=== PATIENT | female | born 1975 | race Caucasian/White ===

== ENCOUNTER 2018-04-17 11:17 | Emergency (ER) | payer MEDICAID, SELFPAY ==
[2018-04-17 11:24] VITALS: BP 126/67; PULSE 82; RESP 16; TEMP 37; O2SAT 97
--- NOTE | 2018-04-17 11:32 | ED.GENADUL_ITS ---
Discharge Plan Disposition Patient Disposition: HOME Condition: Good Discharge Details Chief Complaint: RespSymp Clinical Impression: URI (upper respiratory infection) Primary Care Provider: Brendan Greenberg ED Provider: Fabian Hollis Home Meds and New Rx's Prescriptions: New albuterol sulfate 90 mcg/actuation HFA aerosol inhaler 1 puff IH Q6H PRN (Reason: shortness of breath or wheezing) Qty: 6.7 RF: 0 No Action multivitamin Tablet 1 tab PO DAILY RF: 0 Discharge Instructions Instructions: Upper Respiratory Infection (ED) Additional Instructions: Please use the inhaler every 4-6 hours. if you notice any worsening of your symptoms, or any new symptoms such as vomiting, diarrhea, fever, chills, shortness of breath, chest pain, numbness, weakness, or fainting , please return immediately to the emergency department for reevaluation. Please follow up with your primary care provider as soon as possible for reassessment and reevaluation. As always, it was a pleasure participating in your medical care today. Referrals: Brendan Greenberg MD [Primary Care Provider] - Medical Decision Making This is a 42-year-old female with past medical history of tobacco use who presents with a cough for the last week and a half. She has no red flags or symptoms concerning for pulmonary embolism. Cough is nonproductive she is afebrile, vital signs are reassuring. Physical exam demonstrates no wheezes rales rhonchi. No evidence of hypoxemia or respiratory distress. With an unremarkable physical exam, no significant erythema in the posterior oropharynx or signs of severe infection I feel she can be safely discharged home. With her tobacco history I do feel that she is suffering from a viral upper respiratory infection with perhaps minimal associated bronchitis. We will prescribe an inhaler, give Toradol and Decadron here in the ED. I have extensively reviewed the treatment plan and discharge instructions with the patient. I have addressed all patient concerns at this time. The patient was made aware of what symptoms to monitor for that would warrant a return to the emergency department. Discussed the plan with the patient, they demonstrate verbal understanding and agreement with our assessment and plan at this time. HPI General Date/Time Provider Initiated Documentation: 04/17/18 11:18 . HPI Narrative: This is a 42-year-old female with a past medical history of tobacco use and a tubal ligation who presents today for evaluation of cough occasional chills, for the last week to week and a half. She states that she felt slightly warm at home, but she is afebrile here. Her cough is nonproductive. She denies any hemoptysis. denies PE risk factors such as recent long car rides, immobilization, recent surgery, prior history of DVT or PE, family history of PE or DVT, morbid obesity, exogenous estrogen and smoking, hemoptysis, history of cancer. 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 She has not gotten her flu shot. She does admit to regular tobacco use. Patient denies any nausea, vomiting, chest pain, shortness of breath, numbness, tingling, or weakness. She denies any other complaints at this time or any other modifying factors. She denies any recent hospitalizations. She denies any IV or illicit drug use or pertinent family history. Related Data Home Medications Medication Instructions Recorded Confirmed albuterol sulfate 1 puff IH Q6H PRN #6.7 gm 04/17/18 multivitamin 1 tab PO DAILY 04/17/18 04/17/18 Previous Rx's Medication Instructions Recorded albuterol sulfate 1 puff IH Q6H PRN #6.7 gm 04/17/18 Allergies Allergy/AdvReac Type Severity Reaction Status Date / Time Latex, Natural Rubber Allergy Unverified 04/17/18 11:34 morphine Allergy Unverified 04/17/18 11:33 Penicillins Allergy Unverified 04/17/18 11:33 Review of Systems Review of Systems All systems reviewed & are unremarkable except as noted in HPI and below PFSH Social History Smoking/Tobacco Use Status: Current every day Exam Narrative Exam Narrative: 1.Const: Well-nourished, Well-developed, appearing stated age 2.Eyes: PERRL, no conjunctival injection, and symmetrical lids. 3.ENT: Atraumatic external nose and ears. Moist MM. Neck: Symmetric, trachea midline, No thyromegaly. Patient demonstrates good movement of cervical neck. There is no nuchal rigidity, no nuchal tenderness. Patient is able to flex the neck without any difficulty or significant pain. Negative Kernig's and Brudzinski sign. 4.CVS: +S1/S2, No murmurs or gallops. Peripheral pulses 2+ and equal in all extremities. Brisk capillary refill in all extremities. 5.RESP: Unlabored respiratory effort. Clear to auscultation bilaterally. No wheezes rales or rhonchi 6.GI: Soft, Nontender/Nondistended, No hepatosplenomegaly. No guarding or rebound. 7.MSK: Normocephalic/Atraumatic, Extremities w/o deformity or ttp No cyanosis or clubbing, Normal movement of all extremities 8.Skin: Warm, notably dry skin. No rashes or lesions. 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 Sensation grossly intact, no focal neurologic deficits. 10.Psych: (AAO) x3. Appropriate mood and affect
[2018-04-17] MEDS: Dexamethasone 4 MG TAB 12 MG PO (11:39)
[2018-04-17] MEDS: Ketorolac 30 MG/ML VIAL IM (11:40)
--- NOTE | 2018-04-18 09:09 | PDOC.ERCMPRO ---
Care Management Progress Note 04/18-Dr. 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 Does not need ED f/u needs to establish PCP. Referral faxed to [facility] this am.
--- NOTE | 2018-04-18 09:10 | CMPROGNOTE_ITS ---
Care Management Progress Note 04/18-Dr. 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 Does not need ED f/u needs to establish PCP. Referral faxed to [facility] this am.
== END 2018-04-17 11:48 | disposition home or self-care (01) ==
PROVIDERS: Emergency Provider Student in an Organized Health Care Education/Training Program; PCP Family Medicine
DX: J06.9 Acute upper respiratory infection, unspecified (principal); F17.210 Nicotine dependence, cigarettes, uncomplicated
CPT/HCPCS: 96372; 99284; J1885; J8540

== ENCOUNTER 2018-06-10 13:07 | Outpatient (REF) | payer MEDICAID, SELFPAY ==
--- NOTE | 2018-06-10 11:00 | PAPFT_PTH ---
PATIENT: Ina Morataya LOC: [facility] U#:[id number] AGE/SX: 42/F ROOM: RE06/10/[address]: KASSANDRA Valle : 1975 BED: DIS: 06/10/2018 SPEC #: [id number] RECD: 06/10/18 17:43 STATUS: CAROLA REKathleen #: [id number] JUNIOR: 06/10/18 11:[address]: Sloane Dodge DEPT: [facility] Cytology RECD BY: Agata Noble ENTERED: 06/10/18 17:43 SP TYPE: PAPFT OTHR DR: Brendan Greenberg Tissues: 1 - CX/ENDOCX FOR PAP SMEARS Procedures: PAP THIN PREP/UVM Screening HPV DNA PROBE Comments: [id number]
[2018-06-11 14:54] LABS: Chlamydia Result Negative; GC Result Negative; Specimen Description CERVIX
== END 2018-06-10 13:27 ==
LOC: LBN 13:07
PROVIDERS: PCP Family Medicine; Visit Provider Nurse Practitioner Family
DX: Z11.3 Encounter for screening for infections with a predominantly sexual mode of transmission (principal); Z12.4 Encounter for screening for malignant neoplasm of cervix; Z11.51 Encounter for screening for human papillomavirus (HPV)
CPT/HCPCS: 87491; 87591; 88142; 87624

== ENCOUNTER 2018-06-12 11:12 | Outpatient (CLI) | payer MEDICAID, SELFPAY ==
[2018-06-13 09:35] LABS: Hepatitis C Ab w Rflx HCV PCR Negative (NEGAT)
[2018-06-13 09:42] LABS: HIV-1/2 Ag & Ab Screen Negative (NEGAT)
[2018-06-13 10:30] LABS: Hepatitis B Surface Ag Negative (NEGAT)
[2018-06-13 12:17] LABS: Syphilis Serology (RPR) Negative (Negative)
== END 2018-06-12 11:32 ==
PROVIDERS: Visit Provider Nurse Practitioner Family
DX: Z11.3 Encounter for screening for infections with a predominantly sexual mode of transmission (principal); Z11.59 Encounter for screening for other viral diseases; Z01.84 Encounter for antibody response examination; Z11.4 Encounter for screening for human immunodeficiency virus [HIV]
CPT/HCPCS: 36415; 86803; 87340; 87389; 86592

== ENCOUNTER 2018-06-18 01:25 | Outpatient (CLI) | payer MEDICAID, SELFPAY ==
--- NOTE | 2018-06-18 12:54 | DI.MAMMO_ITS ---
SYMPTOMS/DIAGNOSIS: SCREENING, Z12.31 MAMMOGRAM: Mammograms were interpreted according to the usual protocol including computer analysis with CAD system, tomosynthesis and C view imaging. The breasts are extremely dense and heterogeneous in appearance. No dominant mass is seen. No gross interval change in appearance allowing for differences in technique in comparison with previous outside examinations including June 2014. CONCLUSION: No specific evidence of malignancy at this time. Routine screening examinations are suggested at yearly intervals due to the high breast density and heterogeneous appearance. Category 1, breast density category D. MQSA ASSESSMENT OF FINDINGS: Negative. Category 1. Patient will receive a letter notifying them of these results. BI-RADS category D. The breasts are extremely dense, which lowers the sensitivity of mammography.
== END 2018-06-18 01:45 ==
PROVIDERS: Visit Provider Nurse Practitioner Family
DX: Z12.31 Encounter for screening mammogram for malignant neoplasm of breast (principal)
CPT/HCPCS: 77063; 77067

== ENCOUNTER 2018-09-30 15:05 | Outpatient (REF) | payer MEDICAID, SELFPAY | END 2018-09-30 15:25 | LOC: LBN 15:05 | PROVIDERS: Visit Provider Nurse Practitioner Family | DX: R35.0 Frequency of micturition (principal) | CPT/HCPCS: 87086 ==

== ENCOUNTER 2019-09-14 01:14 | Outpatient (CLI) | payer MEDICAID, SELFPAY ==
--- NOTE | 2019-09-14 09:45 | DI.MAMMO_ITS ---
EXAM: MAMMO SCREENING CLINICAL HISTORY: screening, Z12.39 TECHNIQUE: Mammograms were interpreted according to the usual protocol including computer analysis w [employer] CAD system, tomosynthesis and C-view imaging. COMPARISON: 2014 and 2018 FINDINGS: The breasts are composed of heterogeneously dense fibroglandular densities, Breast Density category C . No suspicious masses or suspicious microcalcifications are seen. No skin thickening or abnormal axillary lymph nodes are seen. There has been no significant change from prior exams. IMPRESSION: BI-RADS Category 1: Negative mammogram. Yearly screening mammography is recommended. Breast density category C, heterogeneously dense tissue which decreases the sensitivity of the mammog dorie. The mammogram demonstrates the patient's breast tissue is dense. Dense breast tissue is very common a nd is not abnormal but dense breast tissue can make it harder to find cancer on a mammogram. Also, de nse breast tissue may increase breast cancer risk. This information about the result of the mammogram report was provided to the patient to raise their awareness. Use this report when you speak with the patient about their risks for breast cancer, which includes their family history. At that time, you may recommend additional screening tests (Ultrasound or MRI) as they might be useful based on their r isk. A negative radiographic report should not delay biopsy if a dominant or clinically suspicious mass is present. Up to ten percent of cancers are not identified on mammography. A negative report may reinforce clinical impression. Adenosis and dense breasts may obscure an underlying neoplasm. False positive reports average 6 to 10%.
--- NOTE | 2019-09-14 09:45 | DI.US_ITS ---
EXAM: US PELVIS TRANSVAGINAL CLINICAL HISTORY: irregular periods, N92.6. TECHNIQUE: Transabdominal and transvaginal pelvic ultrasound was performed using standard protocol. COMPARISON: No exams were available for comparison FINDINGS: KIDNEYS: Kidneys are symmetric in size. No evidence of renal calculi. No evidence of hydronephrosis. No renal mass or cyst identified. UTERUS: Position: Retroverted. Size: 8.3 x 5.4 x 5.6 cm Endometrium: 1.1 cm. Normal for patient's menstrual status. Myometrium: Unremarkable. Cervix: Unremarkable. OVARIES: Right: 4.0 x 2.7 x 3.6 cm Cyst or mass: 4.7 x 3.2 x 4.1 centimeter cyst with hemorrhage or debris. Left: 2.5 x 1.2 x 3.1 cm Cyst or mass: 2.1 cm corpus luteal cyst. DOPPLER: Color: Symmetric and uniform flow to both ovaries. No hyperemia. Duplex: Normal ovarian arterial waveforms visualized. CUL-DE-SAC: Free fluid: None. Other: None. IMPRESSION: 1. Normal sonographic appearance of the kidneys. 2. Normal-appearing uterus with endometrial stripe within normal limits. 3. 4.7 centimeter complex cyst of the right ovary. A follow-up exam could be considered.. DATA REPOSITORY:
== END 2019-09-14 01:34 ==
PROVIDERS: Visit Provider Nurse Practitioner Family
DX: Z12.31 Encounter for screening mammogram for malignant neoplasm of breast (principal); N92.6 Irregular menstruation, unspecified; N83.291 Other ovarian cyst, right side; N83.12 Corpus luteum cyst of left ovary
CPT/HCPCS: 36415; 77063; 77067; 76830; 76856; 84443

== ENCOUNTER 2019-09-14 02:00 | Outpatient (CLI) | payer MEDICAID, SELFPAY ==
[2019-09-14 13:29] LABS: TSH (W/Ref FT4) 2.98 uIU/mL (0.36-3.74)
== END 2019-09-14 02:20 ==
PROVIDERS: Visit Provider Nurse Practitioner Family
DX: N92.6 Irregular menstruation, unspecified (principal)
CPT/HCPCS: 36415; 84443

== ENCOUNTER 2019-10-30 02:46 | Outpatient (CLI) | payer MEDICAID, SELFPAY ==
--- NOTE | 2019-10-30 06:30 | DI.US_ITS ---
EXAM: US PELVIS CLINICAL HISTORY: right ovarian cyst,N83.201 TECHNIQUE: Transabdominal and transvaginal imaging was performed using standard protocol. COMPARISON: US US PELVIS TRANSVAGINAL from 09/14/2019 FINDINGS: KIDNEYS: Kidneys are symmetric in size. No evidence of renal calculi. No evidence of hydronephrosis. No renal mass or cyst identified. UTERUS: Retroverted. 8.5 x 4.4 x 4.6 cm. Endometrium: 8 millimeters. Myometrium: Unremarkable. Cervix: Unremarkable. OVARIES: Right: Cyst or mass: None. Left: Cyst or mass: None. DOPPLER: Color: Symmetric and uniform flow to both ovaries. No hyperemia. Duplex: Normal ovarian arterial waveforms visualized. CUL-DE-SAC: Free fluid: None. IMPRESSION: 1. Normal-appearing uterus with endometrial stripe within normal limits. 2. Unremarkable bilateral ovaries. Resolution of previously noted hemorrhagic cyst of the right ovary . DATA REPOSITORY:
== END 2019-10-30 03:06 ==
PROVIDERS: Visit Provider Nurse Practitioner Family
DX: Z87.42 Personal history of other diseases of the female genital tract
CPT/HCPCS: 76856

== ENCOUNTER 2024-09-09 10:49 | Emergency (ER) | payer SELFPAY ==
[2024-09-09 10:52] VITALS: BP 117/75; PULSE 94; RESP 20; TEMP 36.6; O2SAT 96
--- NOTE | 2024-09-09 11:00 | DI.RAD_ITS ---
Exam(s) XR CHEST 2V PA LATERAL EXAM: XR CHEST 2V PA LATERAL CLINICAL HISTORY: cough TECHNIQUE: 2D digital imaging was performed of the chest. Two images were obtained. PA and lateral views were obtained. COMPARISON: No exams were available for comparison FINDINGS: MEDIASTINUM: Normal. HEART: Normal. PULMONARY VASCULATURE: Normal. LUNGS: There is a vertical opacity in the right lower lobe at the level of the diaphragm. This may r epresent scarring, atelectasis or pneumonia. The left lung is clear. PLEURAL SPACE: No pleural effusion or pneumothorax. BONE:Within normal limits for the patient's age. OTHER FINDINGS:Normal. IMPRESSION: Right basilar infiltrate, atelectasis or scarring. Please correlate clinically. DATA REPOSITORY: RADIATION DOSE DELIVERED:
[2024-09-09 11:50] LABS: COVID-19 PCR Negative (Negative); Influenza A PCR Negative (Negative); Influenza B PCR Negative (Negative); RSV PCR Negative (Negative)
[2024-09-09 11:52] LABS: Source Nasopharynx
--- NOTE | 2024-09-09 11:56 | ED.GENADUL_ITS ---
Discharge Plan Disposition Patient Disposition: Home Condition: Stable Discharge Details Clinical Impression: Respiratory infection Primary Care Provider: None,None ED Provider: Semaj Treviño Home Meds and New Rx's Prescriptions: New prednisone 20 mg tablet 60 mg PO DAILY 4 Days Qty: 12 0RF doxycycline hyclate 100 mg tablet 100 mg PO BID Qty: 14 0RF Continued albuterol sulfate 90 mcg/actuation HFA aerosol inhaler 1 puff IH Q6H PRN (Reason: shortness of breath or wheezing) Qty: 6.7 0RF multivitamin Tablet 1 tab PO DAILY Discharge Instructions Additional Instructions: Take the prednisone and doxycycline as prescribed. You can use the albuterol inhaler 2 puffs every 4 hours as needed. If no improvement within a week follow-up with either a primary care provider or express care. If you feel significantly more ill or short of breath return to the emergency department for reevaluation. HPI General Mode of arrival: ambulatory . Date/Time Provider Initiated Documentation: 09/09/24 10:59 . Limitations to Documentation: no limitations . Information obtained by: patient . History of Present Illness 48 year old F presents to the emergency department with the chief complaint of Cough, described as moderate, Patient started experiencing this day(s) (5) and it has been constant. No relieving factors improve symptom(s), No exacerbating factors reported . Patient notes no other symptoms.. Patient did receive the following treatments prior to arrival, none Related Data Home Medications ?Medication ?Instructions ?Recorded ?Confirmed multivitamin 1 tab PO DAILY 04/17/18 09/30/18 albuterol sulfate 90 mcg/actuation 1 puff inhalation Q6H PRN 08/04/18 09/30/18 aerosol inhaler shortness of breath or wheezing #6.7 grams doxycycline hyclate 100 mg tablet 100 mg PO BID #14 tabs 09/09/24 prednisone 20 mg tablet 60 mg (3 x 20 mg) PO DAILY 4 days 09/09/24 #12 tabs Previous Rx's ?Medication ?Instructions ?Recorded albuterol sulfate 90 mcg/actuation 1 puff inhalation Q6H PRN 08/04/18 aerosol inhaler shortness of breath or wheezing #6.7 grams doxycycline hyclate 100 mg tablet 100 mg PO BID #14 tabs 09/09/24 prednisone 20 mg tablet 60 mg (3 x 20 mg) PO DAILY 4 days 09/09/24 #12 tabs Allergies Allergy/AdvReac Type Severity Reaction Status Date / Time Latex, Natural Rubber Allergy Verified 09/03/19 15:36 morphine Allergy Verified 09/03/19 15:36 Penicillins Allergy Verified 09/03/19 15:36 General Stated Complaint: RespSymp TEAGAN: 3 Review of Systems All systems reviewed & are unremarkable except as noted in HPI and below Constitutional Constitutional: Denies chills, Denies fever(s) and Denies weakness Cardiovascular Cardiovascular: Denies chest pain and Denies dyspnea Respiratory Respiratory: Reports cough and Denies dyspnea Gastrointestinal Gastrointestinal: Denies abdominal pain, Denies nausea and Denies vomiting Neurologic Neurologic: Denies weakness Exam Const General: no acute distress Orientation: alert HENMT Head: normal to inspection Ears: external ears normal General nose exam: external nose normal Mouth: moist mucous membranes Eyes General: appearance normal, both eyes and all related structures Neck Neck: normal visual inspection Resp Effort & Inspection: normal respiratory effort and able to speak in complete sentences Auscultation: wheezes Cardio Rate: regular rate Skin General skin exam: no rashes or lesions noted Neuro General: patient alert and patient oriented x3 Extrem General: normal to inspection Psych Mental Status: mental status grossly normal Course Vital Signs Vital signs: Vital Signs Temperature 36.6 C 09/09/24 10:52 Pulse 94 H 09/09/24 10:52 Respiratory Rate 20 09/09/24 10:52 Blood Pressure 117/75 09/09/24 10:52 Pulse Oximetry 96 09/09/24 10:52 Temperature 36.6 C 09/09/24 10:52 Temperature Source Oral 09/09/24 10:52 Pulse 94 H 09/09/24 10:52 Respiratory Rate 20 09/09/24 10:52 Blood Pressure 117/75 09/09/24 10:52 Blood Pressure Position Sitting 09/09/24 10:52 Pulse Oximetry 96 09/09/24 10:52 Oxygen Delivery Method Room Air 09/09/24 10:52 Oxygen Flow Rate 0 09/09/24 10:52 Pain Level 0 09/09/24 10:52 Lab/Test Results Lab/Test Results: Laboratory Tests Range/Units 09/09/24 11:06 COVID-19 Source Nasopharynx SARS-CoV-2 (PCR) (Negative) Negative Influenza Type A (PCR) (Negative) Negative Influenza Type B (PCR) (Negative) Negative RSV (PCR) (Negative) Negative Medical Decision Making 28-year-old female who denies any significant past medical history, is a smoker, comes in with 5 days of worsening productive cough. Denies any high fevers. Denies any shortness of breath, chest pain or chest pressure. No recent travel. She is speaking full sentences in no distress. She has no JVD, no murmurs. Has apical wheezing bilaterally otherwise clear lung sounds. She had a chest x- ray prior to my exam which on my read does not show any acute findings. Fluvid also negative. I suspect she could have a component of developing COPD versus asthma given her smoking history. Given stable vital signs and reassuring exam I feel she is stable for discharge with outpatient management with an albuterol inhaler to use as needed, prednisone and also doxycycline. She has no pleuritic chest pain or leg swelling or calf tenderness to suggest DVT so I doubt PE. Given lack of chest pain or chest pressure and her main symptom is a cough I do not feel workup for ACS indicated. Return precautions given. Quality:SDOH Health Related Social Needs: No Data to Display PFSH All Active Problems (Updated 09/09/24 @ 11:56 by Semaj Treviño MD) Respiratory infection (Acute) Cigarette smoker (Chronic) Fibrocystic breast changes (Acute) Surgical History (Updated 06/10/18 @ 12:20 by Sloane Dodge NP) H/O tubal ligation Previous section [place] teeth extracted Family History Father Hypertension Mother Fibroid uterus Maternal Grandmother Bone cancer Maternal Grandfather Diabetes Social History Smoking/Tobacco Use Status: Current every day Smoking risk assessment performed?: Yes Drug use: Never Do you feel safe in your relationship?: Yes Female Reproductive History Menstrual control method: permanent sterilization History History 2 Para 3 Hx # Term Pregnancies Multiple births 1 Hx # Pregnancies Ectopic pregnancies AB induced Hx Number of Living Children AB spontaneous
[2024-09-09] MEDS: Doxycycline Hyclate 100 MG CAP PO (12:09)
[2024-09-09] MEDS: Albuterol HFA 8 GM 60 PUFF INH IH (12:09)
[2024-09-09] MEDS: predniSONE 20 MG TAB 60 MG PO (12:10)
== END 2024-09-09 12:14 | disposition home or self-care (01) ==
LOC: ER 12:03
PROVIDERS: Emergency Provider Emergency Medicine
DX: J06.9 Acute upper respiratory infection, unspecified (principal); F17.210 Nicotine dependence, cigarettes, uncomplicated
CPT/HCPCS: 87637; 99284; 71046; J7512